=== PATIENT | female | born 1995 | race Caucasian/White ===

== ENCOUNTER 2021-05-01 15:39 | Inpatient (IN) | payer OTHER ==
[~2021-05-01] VITALS: Ht 180.3 cm; Wt 150.0 kg
[2021-05-01] MEDS: PENICILLIN GK 2,500,000 UNITS in DEXTROSE 5% 100 ML IVPB SCH (11:30)
[2021-05-01 16:25] LABS: BASOPHILS % (AUTO) 1 % (0-1); EOSINOPHILS % (AUTO) 1 % (1-7); LYMPHOCYTES % (AUTO) 17 % (22-44); MEAN CORPUSCULAR HEMOGLOBIN 28.7 pg (27.0-34.8); MEAN CORPUSCULAR HGB CONC 33.2 g/dL (32.4-35.8); MEAN PLATELET VOLUME 9.4 fL (7.4-10.4); MONOCYTES % (AUTO) 4 % (2-9); NEUTROPHILS % (AUTO) 78 % (42-75); PLATELET COUNT 204 x10^3/uL (130-400); RED BLOOD COUNT 4.47 x10^6/uL (3.82-5.3); RED CELL DISTRIBUTION WIDTH 14.8 % (9.6-15.2)
[2021-05-01 16:35] LABS: MICROSCOPIC INDICATED
[2021-05-01 16:39] LABS: ALANINE AMINOTRANSFERASE 18 U/L (12-78); ALBUMIN 2.4 g/dL (3.4-5.0); ANION GAP 9 mmol/L (5-15); BILIRUBIN, DIRECT 0.1 mg/dL (0.1-0.2); CALCIUM 8.9 mg/dL (8.5-10.1); CHLORIDE 106 mmol/L (98-107); CREATININE 0.48 mg/dL (0.55-1.02)
[2021-05-01 16:41] LABS: ALKALINE PHOSPHATASE 119 U/L (45-117); BILIRUBIN,TOTAL 0.3 mg/dL (0.2-1.0); TOTAL PROTEIN 7.2 g/dL (6.4-8.2)
[2021-05-01] MEDS ORDERED: MAGNESIUM SULFATE PMX 2GM/50ML 50 ML IVPB ONE (18:30)
[2021-05-01] MEDS ORDERED: D5%-LACTATED RINGERS 1,000 ML IV SCH (18:30)
[2021-05-01] MEDS ORDERED: LACTATED RINGERS 1,000 ML IV SCH (18:30)
[2021-05-01] MEDS ORDERED: TERBUTALINE 1 MG/ML, 1ML SQ PRN (18:30)
[2021-05-01] MEDS ORDERED: MAGNESIUM SULFATE PMX 4GM/100M 100 ML IVPB ONE (18:30)
[2021-05-01] MEDS ORDERED: PENICILLIN GK 5,000,000 UNITS in DEXTROSE 5% 100 ML IVPB ONE (18:30)
[2021-05-01] MEDS ORDERED: CALCIUM GLUCONATE 4.6 MEQ/10 ML IVPush PRN (18:30)
[2021-05-01] MEDS ORDERED: ONDANSETRON 2MG/ML, 2ML IVPush PRN (18:30)
[2021-05-01] MEDS ORDERED: FENTANYL PF 100 MCG/2ML IVPush PRN (18:30)
[2021-05-01] MEDS ORDERED: OXYTOCIN 30U/ 0.9% NaCL 500ML 500 ML IV ONE (18:30)
[2021-05-01] MEDS ORDERED: CALCIUM CARBONATE 500 MG TAB.CHEW PO PRN (18:30)
[2021-05-01] MEDS ORDERED: ALUMINUM/MAG/SIMETHICONE 30 ML UDC PO PRN (18:30)
[2021-05-01] MEDS ORDERED: TERBUTALINE 1 MG/ML, 1ML IVPush PRN (18:30)
[2021-05-01] MEDS ORDERED: hydrALAzine 20 MG/ML, 1ML IVPush ONE (18:30)
[2021-05-01] MEDS ORDERED: OXYTOCIN 30U/ 0.9% NaCL 500ML 500 ML IV PRN (18:30)
[2021-05-01] MEDS ORDERED: BETAMETHASONE 6 MG/ML, 5ML IM SCH (18:30)
[2021-05-01] MEDS ORDERED: METOCLOPRAMIDE 5 MG/ML, 2ML IVPush PRN (18:30)
[2021-05-01] MEDS ORDERED: LABETALOL 5MG/ML, 20ML IVPush ONE ×3 (18:30)
[2021-05-01] MEDS ORDERED: SODIUM CITRATE/CITRIC ACID 30 ML UDC PO PRN (18:30)
[2021-05-01] MEDS ORDERED: MAGNESIUM SULF. PMX 20GM/500ML 500 ML IV ONE (18:34)
[2021-05-01] MEDS ORDERED: NEWBORN KIT ONE (19:44)
[2021-05-01] MEDS: MISOPROSTOL 25 MCG TABLET VG PRN (20:00)
[2021-05-02] MEDS: MISOPROSTOL 25 MCG TABLET VG PRN ×3 (00:20→21:56)
[2021-05-02] MEDS ORDERED: MAGNESIUM SULF. PMX 20GM/500ML 500 ML IV ONE (01:25)
[2021-05-02] MEDS: MAGNESIUM SULF. PMX 20GM/500ML 500 ML IV SCH ×3 (01:30→21:15)
[2021-05-02] MEDS ORDERED: OXYTOCIN 30U/ 0.9% NaCL 500ML 500 ML IV PRN (07:00)
[2021-05-02 07:20] LABS: BASOPHILS % (AUTO) 1 % (0-1); EOSINOPHILS % (AUTO) 0 % (1-7); LYMPHOCYTES % (AUTO) 11 % (22-44); MEAN CORPUSCULAR HEMOGLOBIN 28.7 pg (27.0-34.8); MEAN CORPUSCULAR HGB CONC 33.1 g/dL (32.4-35.8); MEAN PLATELET VOLUME 9.3 fL (7.4-10.4); MONOCYTES % (AUTO) 3 % (2-9); NEUTROPHILS % (AUTO) 86 % (42-75); PLATELET COUNT 211 x10^3/uL (130-400)
[2021-05-02 07:30] LABS: ALBUMIN 2.4 g/dL (3.4-5.0); ANION GAP 10 mmol/L (5-15); CALCIUM 8.2 mg/dL (8.5-10.1); CHLORIDE 104 mmol/L (98-107)
[2021-05-02 07:34] LABS: ALANINE AMINOTRANSFERASE 18 U/L (12-78); ALKALINE PHOSPHATASE 126 U/L (45-117); BILIRUBIN, DIRECT 0.2 mg/dL (0.1-0.2); BILIRUBIN,TOTAL 0.7 mg/dL (0.2-1.0); CREATININE 0.46 mg/dL (0.55-1.02); TOTAL PROTEIN 7.6 g/dL (6.4-8.2)
[2021-05-02] MEDS: PENICILLIN GK 2,500,000 UNITS in DEXTROSE 5% 100 ML IVPB SCH ×3 (11:30→21:08)
[2021-05-02] MEDS: CLINDAMYCIN TP SCH ×3 (16:30→21:00)
[2021-05-02] MEDS ORDERED: MISOPROSTOL 25 MCG TABLET VG ONE (18:00)
[2021-05-03] MEDS: PENICILLIN GK 2,500,000 UNITS in DEXTROSE 5% 100 ML IVPB SCH ×2 (01:05→06:00)
[2021-05-03] MEDS: MISOPROSTOL 25 MCG TABLET VG PRN (03:34)
[2021-05-03] MEDS: MAGNESIUM SULF. PMX 20GM/500ML 500 ML IV SCH ×2 (07:28→16:50)
[2021-05-03] MEDS ORDERED: LACTATED RINGERS 1,000 ML IVBOLUS ONE (09:00)
[2021-05-03] MEDS: CLINDAMYCIN TP SCH ×2 (09:00→21:00)
[2021-05-03] MEDS ORDERED: SODIUM CITRATE/CITRIC ACID 30 ML UDC PO ONE (09:00)
[2021-05-03] MEDS ORDERED: METOCLOPRAMIDE 5 MG/ML, 2ML IV ONE (09:00)
[2021-05-03] MEDS ORDERED: SODIUM CITRATE/CITRIC ACID 15 ML UDC ONE (09:07)
[2021-05-03] MEDS ORDERED: morphine SULFATE/PF 0.5 MG/ML, 10ML ONE (09:50)
[2021-05-03] MEDS ORDERED: CEFAZOLIN 1,000 MG ONE (09:51)
[2021-05-03] MEDS ORDERED: KETOROLAC 30 MG/1 ML ONE (09:51)
[2021-05-03] MEDS ORDERED: ONDANSETRON 2MG/ML, 2ML ONE (09:51)
[2021-05-03] MEDS ORDERED: DEXAMETHASONE 4 MG/ML, 1ML ONE (09:51)
[2021-05-03] MEDS ORDERED: SODIUM CHLORIDE 0.9% PF 10ML ONE (09:51)
[2021-05-03] MEDS ORDERED: PHENYLEPHRINE 10 MG/ML ONE (09:52)
[2021-05-03] MEDS ORDERED: OXYTOCIN 10 UNITS/ML, 1ML ONE (10:07)
[2021-05-03] MEDS ORDERED: OXYcodone IR 5MG TABLET PO PRN (11:00)
[2021-05-03] MEDS ORDERED: ACETAMINOPHEN 325 MG TABLET PO PRN (11:00)
[2021-05-03] MEDS ORDERED: ONDANSETRON 2MG/ML, 2ML IV PRN ×2 (11:00→11:30)
[2021-05-03] MEDS ORDERED: IBUPROFEN 600 MG TABLET PO PRN (11:00)
[2021-05-03] MEDS ORDERED: DOCUSATE 100 MG CAPSULE PO PRN (11:00)
[2021-05-03] MEDS ORDERED: SIMETHICONE 80 MG CHEW TAB PO PRN ×2 (11:00→11:30)
[2021-05-03] MEDS ORDERED: MISOPROSTOL 200 MCG TABLET PR PRN ×2 (11:00→11:30)
[2021-05-03] MEDS ORDERED: OXYTOCIN 30U/ 0.9% NaCL 500ML 500 ML IV SCH (11:00)
[2021-05-03] MEDS ORDERED: OXYcodone/APAP 5/325MG TABLET PO PRN ×3 (11:00→11:30)
[2021-05-03] MEDS ORDERED: OXYcodone 5 MG/5 ML ORAL.SOL UDC ONE (12:41)
[2021-05-03] MEDS ORDERED: OXYcodone 5 MG/5 ML ORAL.SOL UDC PO PRN (13:00)
[2021-05-03] MEDS ORDERED: FENTANYL PF 100 MCG/2ML IV PRN (13:00)
[2021-05-03] MEDS: KETOROLAC 30 MG/1 ML IVPush SCH ×2 (17:00→23:52)
[2021-05-03 19:49] VITALS: BP 125/70
[2021-05-03] MEDS: OXYTOCIN 30U/ 0.9% NaCL 500ML 500 ML IV SCH ×2 (21:17→21:30)
[2021-05-03] MEDS: DOCUSATE 100 MG CAPSULE PO PRN (21:19)
[2021-05-04] VITALS: BP 120/65
[2021-05-04] MEDS: LACTATED RINGERS 1,000 ML IV SCH ×2 (02:30→22:30)
[2021-05-04] MEDS: MAGNESIUM SULF. PMX 20GM/500ML 500 ML IV SCH (02:32)
[2021-05-04 05:11] LABS: BASOPHILS % (AUTO) 1 % (0-1); EOSINOPHILS % (AUTO) 0 % (1-7); LYMPHOCYTES % (AUTO) 18 % (22-44); MEAN CORPUSCULAR HEMOGLOBIN 29.2 pg (27.0-34.8); MEAN CORPUSCULAR HGB CONC 33.2 g/dL (32.4-35.8); MEAN PLATELET VOLUME 8.9 fL (7.4-10.4); MONOCYTES % (AUTO) 7 % (2-9); NEUTROPHILS % (AUTO) 74 % (42-75); PLATELET COUNT 182 x10^3/uL (130-400); RED BLOOD COUNT 3.84 x10^6/uL (3.82-5.3); RED CELL DISTRIBUTION WIDTH 15.3 % (9.6-15.2)
[2021-05-04 05:25] LABS: CHLORIDE 102 mmol/L (98-107)
[2021-05-04 05:32] LABS: ALANINE AMINOTRANSFERASE 18 U/L (12-78); ALBUMIN 1.9 g/dL (3.4-5.0); ALKALINE PHOSPHATASE 98 U/L (45-117); ANION GAP 4 mmol/L (5-15); BILIRUBIN,TOTAL 0.3 mg/dL (0.2-1.0); CALCIUM 7.7 mg/dL (8.5-10.1); CREATININE 0.53 mg/dL (0.55-1.02)
[2021-05-04] MEDS: KETOROLAC 30 MG/1 ML IVPush SCH ×3 (05:57→21:05)
[2021-05-04] MEDS: OXYTOCIN 30U/ 0.9% NaCL 500ML 500 ML IV SCH ×2 (07:30→17:30)
[2021-05-04] MEDS: CLINDAMYCIN TP SCH ×2 (09:00→21:00)
[2021-05-04] MEDS ORDERED: PRENATAL VIT/IRON/FA 1 EACH TABLET PO SCH (09:00)
[2021-05-04] MEDS: PRENATAL VIT/IRON/FA 1 EACH TABLET PO SCH (10:09)
[2021-05-04] MEDS: LABETALOL 100 MG TABLET PO SCH ×2 (10:44→21:05)
[2021-05-04 17:40] VITALS: BP 128/69
[2021-05-04 20:00] VITALS: BP 142/84
[2021-05-04] MEDS: DOCUSATE 100 MG CAPSULE PO PRN (21:05)
[2021-05-04 23:37] VITALS: BP 142/82
[2021-05-05] MEDS: OXYTOCIN 30U/ 0.9% NaCL 500ML 500 ML IV SCH ×3 (03:25→23:30)
[2021-05-05] MEDS: KETOROLAC 30 MG/1 ML IVPush SCH ×2 (03:31→10:25)
[2021-05-05 03:32] VITALS: BP 137/84
[2021-05-05 08:40] VITALS: BP 149/93
[2021-05-05 08:45] VITALS: BP 150/93
[2021-05-05] MEDS: PRENATAL VIT/IRON/FA 1 EACH TABLET PO SCH (10:25)
[2021-05-05] MEDS: LABETALOL 100 MG TABLET PO SCH ×2 (10:25→21:30)
[2021-05-05 12:07] VITALS: BP 116/81
[2021-05-05] MEDS: CLINDAMYCIN TP SCH ×2 (14:00→21:29)
[2021-05-05 16:05] VITALS: BP 126/84
[2021-05-05] MEDS: IBUPROFEN 600 MG TABLET PO PRN (16:24)
[2021-05-05] MEDS: LACTATED RINGERS 1,000 ML IV SCH (18:30)
[2021-05-05 20:00] VITALS: BP 128/87
[2021-05-06 00:45] VITALS: BP 132/85
[2021-05-06] MEDS: IBUPROFEN 600 MG TABLET PO PRN (03:01)
[2021-05-06 04:40] VITALS: BP 130/83
[2021-05-06 07:59] VITALS: BP 149/94
[2021-05-06] MEDS ORDERED: OXYC1TAB14 PO (10:02)
[2021-05-06] MEDS ORDERED: DOCU-131 PO (10:03)
[2021-05-06] MEDS ORDERED: IBUP-1222 PO (10:03)
[2021-05-06] MEDS ORDERED: LABE100T6 PO (10:04)
== END 2021-05-06 12:30 | disposition home or self-care (01) | DRG 787 ==
LOC: LDOP 15:39 → LDIP 18:29 → 2NE 05-03 12:44 → 2NW 05-04 16:18
PROVIDERS: ADMIT Obstetrics & Gynecology; ATTEND Obstetrics & Gynecology
PROC: 10D00Z1 Extraction of Products of Conception, Low, Open Approach (ICD-10-PCS; principal; 2021-05-03)
PROC: 3E0P7VZ Introduction of Hormone into Female Reproductive, Via Natural or Artificial Opening (ICD-10-PCS; 2021-05-03)
DX: O11.4 Pre-existing hypertension with pre-eclampsia, complicating childbirth (principal); O99.354 Diseases of the nervous system complicating childbirth; Z20.822 Contact with and (suspected) exposure to COVID-19; O61.9 Failed induction of labor, unspecified; O69.81X0 Labor and delivery complicated by cord around neck, without compression, not applicable or unspecified; Z37.0 Single live birth; Z3A.35 35 weeks gestation of pregnancy; Z82.3 Family history of stroke; Z82.49 Family history of ischemic heart disease and other diseases of the circulatory system; G43.909 Migraine, unspecified, not intractable, without status migrainosus; O99.214 Obesity complicating childbirth
CPT/HCPCS: 36415; 80053; 81001; 82248; 82570; 83735; 84156; 84550; 85025; 86592; 86850; 86900; 87081; 87635; G0378; J0690; J0702; J1100; J1885; J2274; J2405; J2540; J2370; J2590; J3475; J7120